=== PATIENT | female | born 1950 | race Caucasian/White ===

== ENCOUNTER → 2016-07-16 | Outpatient (CLI) | payer OTHER ==
--- NOTE | 2016-07-16 13:58 | DI ---
LEFT DIAGNOSTIC MAMMOGRAMS, 07/16/2016 9:55 AM: Clinical History: Status post left lumpectomy and radiation therapy for breast cancer. Prior Exam: 12/24/2015; and postbiopsy films of the left breast from 01/06/2016. Digital 2D and digital tomosynthesis scans of the left breast are obtained with the [employer]. C-View images are produced in the same projections as in the tomosynthesis projec tions. CAD review is performed. Breast tissue density is rated as being composed almost entirely of fatty tissue. Surgical clips are present in the axilla secondary to the sentinel node biopsy. In the upper-outer quadrant is an area o f increased density with a stellate pattern consistent with postsurgical scarring. There is a cluster of punctate calcifications located in the central axis of the breast and in the middle third. These have not changed from the previous exam. There is skin thickening secondary to radiation therapy. The nipple and lower axillary region are otherwise normal. Follow Up: The patient would be due for her bilateral mammogram study in 6 months. At that time, rekha wilder with routine films, the digital breast tomosynthesis of the left breast is recommended along with m agnification compression spot films of the calcifications located in the center of the left breast. BIRADS: 3: Probably benign finding. A diagnostic left mammogram with digital breast tomosynthesis and magnification compression spot films are recommended in 6 months at the time of her scheduled annual mammograms. Assessment: Probably benign finding - short interval follow-up suggested.
== END ==
LOC: MAMMO 09:50
PROVIDERS: ATTEND Physician Assistant
DX: C50.512 Malignant neoplasm of lower-outer quadrant of left female breast (principal); Z98.890 Other specified postprocedural states; Z92.3 Personal history of irradiation
CPT/HCPCS: G0206; G0279